=== PATIENT | female | born 1995 | race Two or more races ===

== ENCOUNTER → 2019-11-18 | Emergency (ER) | payer MEDICAID, OTHER ==
[~2019-11-18] VITALS: Ht 170.2 cm; Wt 111.1 kg
[2019-11-18 16:47] VITALS: BP 123/81
[2019-11-18 18:43] LABS: Eosinophils # (auto) 0.1 10 ^3/uL (0-0.8); Monocytes # (auto) 0.4 10 ^3/uL (0-1.3); Nucleated Red Blood Cells % 0.2 %; White Blood Cell 7.8 10^3/uL (4.4-10.8)
[2019-11-18 18:44] LABS: Basophils # (auto) 0.1 10 ^3/uL (0-0.2); Basophils % (auto) 0.7 % (0.0-2.0); Eosinophils % (auto) 1.8 % (0.0-7.0); Hematocrit 28.2 % (36.0-46.0); Hemoglobin 7.9 g/dL (12.2-16.2); Lymphocytes # (auto) 1.7 10 ^3/uL (0.4-5.4); Lymphocytes % (auto) 21.1 % (10.0-50.0); Mean Corpuscular Hemoglobin 16.3 pg (28.0-32.0); Mean Corpuscular Volume 58.2 fL (80.0-100.0); Monocytes % (auto) 5.2 % (0.0-12.0); Neutrophils # (auto) 5.6 10 ^3/uL (1.6-8.6); Neutrophils % (auto) 71.2 % (37.0-80.0); Platelet Count (auto) 266 10^3/uL (140-450); Red Blood Cells 4.84 10^6/uL (4.0-5.20)
[2019-11-18 18:56] LABS: Red Cell Distribution Width 20.9 % (11.8-14.3)
[2019-11-18 19:03] LABS: Urine Bacteria NONE SEEN /hpf (None Seen); Urine Blood 3+ /uL (Negative); Urine Budding Yeast FEW /hpf (None Seen); Urine Mucus FEW (None Seen); Urine Specific Gravity 1.021 (1.001-1.035); Urine WBC 35 /hpf (0 - 5)
[2019-11-18 19:08] LABS: Albumin 3.5 g/dL (3.4-5.0); BUN/Creatinine Ratio 11.9; Calcium 8.7 mg/dL (8.5-10.1); Potassium 3.7 mmol/L (3.5-5.1)
[2019-11-18 19:11] LABS: Bilirubin, Total 0.4 mg/dL (0.2-1.0); Total Protein 7.7 g/dL (6.4-8.2)
== END | disposition left against medical advice (07) ==
LOC: ER 16:16
DX: N93.8 Other specified abnormal uterine and vaginal bleeding (principal); Z32.02 Encounter for pregnancy test, result negative
CPT/HCPCS: 36415; 80053; 81001; 81025; 85025

== ENCOUNTER 2020-03-22 18:51 | Emergency (ER) | payer MEDICAID ==
[~2020-03-22] VITALS: Ht 170.2 cm; Wt 104.3 kg
[2020-03-22 20:11] VITALS: BP 142/90
[2020-03-22] MEDS: traMADol HCL 50 MG TAB PO ONE (20:23)
== END 2020-03-22 20:26 | disposition home or self-care (01) ==
LOC: ER 18:51 → EDBD 18:51 → ER 20:26
DX: S20.212A Contusion of left front wall of thorax, initial encounter (principal); V49.9XXA Car occupant (driver) (passenger) injured in unspecified traffic accident, initial encounter; Y93.89 Activity, other specified; Y92.89 Other specified places as the place of occurrence of the external cause; Y99.8 Other external cause status
CPT/HCPCS: 71046